=== PATIENT | male | born 1940 | race Caucasian/White ===

== ENCOUNTER 2022-07-27 09:46 | Outpatient (CLI) | payer MEDICARE, SELFPAY ==
[2022-07-27 10:48] LABS: Anion Gap 4 mmol/L (8-16); Blood Urea Nitrogen 16 mg/dL (9-20); Calcium 9.1 mg/dL (8.4-10.2); Carbon Dioxide 33 mmol/L (22-30); Chloride 102 mmol/L (98-107); Estimated Glomerular Filt Rate > 60; Glucose 98 mg/dL (65-110); Potassium 3.9 mmol/L (3.4-5.0); Sodium 139 mmol/L (137-145)
== END 2022-07-27 09:47 | disposition home or self-care (01) ==
LOC: ANHSURGERY 09:52
PROVIDERS: Anesthesiology; PCP Pediatrics; Visit Provider Plastic Surgery
DX: I10 Essential (primary) hypertension (principal); Z01.818 Encounter for other preprocedural examination
CPT/HCPCS: 36415; 80048

== ENCOUNTER 2022-07-28 00:34 | Day surgery (SDC) | payer MEDICARE, SELFPAY ==
--- NOTE | 2022-07-26 13:29 | PC.NURSE ---
Report to the Outpatient Waiting Room, entrance under the green pavilion located off [facility], at time _0630 on date _07/28/22 . Planned Procedure Time: _0830 . Time changes happen often and if your time is changed the preop area will call you the afternoon before. - You and your visitor will be asked to self-screen and do not enter if you have any COVID symptoms. - Only one visitor is requested with a max of two and NO children visitors are allowed at this time. - The patient visitor may be requested to leave or wait in car when not with patient due to distancing restrictions. - A mask is optional within the hospital. Patients may have clear liquids (water, carbonated beverages, clear teas, apple juice) until 3 hours prior to surgery with a maximum of 20 ounces. - No food from midnight until time of surgery - Infants may have breast milk until 4 hours before surgery, infant formula 6 hours prior to surgery. - Children will be allowed to drink immediately following surgery. If applicable, please bring a bottle or sippy cup to assist with drinking. Juice, water, soda, and popsicles are readily available. For infants on formula, please bring formula the day of surgery. Pacifiers are allowed. Take the following medications with a SIP of water the morning of surgery: __AMLODIPINE AND CARVEDILOL Medications to discontinue per physician ____ALL VITAMINS AND SUPPLEMENT 3 DAYS PRE OP PATIENT STATES LAST DOSE07/26/22 MAY CONTINUE ASPIRIN AND ELIQUIS PER DR ELLER JUST DON'T TAKE MORNING OF SURGERY Please no make-up, nail icelandic, hairspray, perfume, deodorant, or body powder the day of surgery. No jewelry (including any body piercings) or valuables the day of surgery, leave them at home. Please take a shower or bath the night before, or the morning of, surgery with an antibacterial soap. Wear comfortable, loose fitting clothing. Children are encouraged to wear pajamas. - Jewelry must be removed prior to entering the operating room. Rings and piercings that are not removed may be cut off. - The hospital will not accept responsibility for valuables. - Please leave all valuables, including medications, at home the day of surgery. If you are going home after surgery, a licensed day haul or farm charter bus driver must drive you home. - NO public transportation without another adult if you receive anesthesia. - We recommend that an adult stay with you for 24 hours following discharge. - We also recommend that you do not drive, make important decision, drink alcoholic beverages, or take any drugs that were not prescribed by your health care provider for at least 24 hours after your discharge time. Follow any additional instructions given to you from your surgeon. If you or anyone in your household have experienced Covid symptoms in the past week, please notify your surgeon or the nurse liaison at the phone number below for possible testing. Telephone instructions given to __PATIENT and asked if any additional questions and then verbalized understanding. Patient advised to call surgeon office or pre surgery nurse liaison [phone] if any additional questions.
[2022-07-26 13:42] VITALS: BMI 34.2
[2022-07-28 06:13] VITALS: BP 130/67; PULSE 56; RESP 18; TEMP 36.3; O2SAT 97
[2022-07-28] MEDS: LACTATED RINGERS 1,000 ML 30 ML IV CONT ×2 (06:34→08:49)
--- NOTE | 2022-07-28 07:01 | WPDANESEPPF ---
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 Patient Data Age: 82 Gender: M Height: 1.75 m Weight: 105.25 kg Allergies Allergy/AdvReac Type Severity Reaction Status Date / Time No Known Allergies Allergy Verified 07/26/22 13:08 Home Medications Medication Instructions Recorded Confirmed Type allopurinol 100 mg tablet 100 mg PO BID 07/26/22 07/28/22 History amlodipine 5 mg tablet 5 mg PO BID 07/26/22 07/28/22 History apixaban 5 mg tablet (Eliquis) 5 mg PO BID 07/26/22 07/28/22 History aspirin 81 mg tablet,delayed 81 mg PO DAILY 07/26/22 07/28/22 History release (Adult Low Dose Aspirin) atorvastatin 40 mg tablet 40 mg PO HS 07/26/22 07/28/22 History carvedilol 25 mg tablet 25 mg PO BID 07/26/22 07/28/22 History cholecalciferol (vitamin D3) 50 50 mcg PO DAILY 07/26/22 07/28/22 History mcg (2,000 unit) tablet hydrochlorothiazide 25 mg tablet 25 mg PO DAILY 07/26/22 07/28/22 History lisinopril 5 mg tablet 5 mg PO DAILY 07/26/22 07/28/22 History loratadine 10 mg tablet 10 mg PO DAILY 07/26/22 07/28/22 History montelukast 10 mg tablet 10 mg PO DAILY 07/26/22 07/28/22 History nitroglycerin 0.4 mg sublingual 0.4 mg sublingual Q5-15M PRN Chest 07/26/22 07/28/22 History tablet Pain omeprazole 20 mg capsule,delayed 20 mg PO PRN PRN Heartburn 07/26/22 07/28/22 History release potassium chloride 20 mEq 20 meq PO DAILY 07/26/22 07/28/22 History tablet,extended release zinc 50 mg tablet 50 mg PO DAILY 07/26/22 07/28/22 History Patient hx anesthesia problems: none Family hx anesthesia problems: none Results Review: All pre-operative results and documents have been reviewed as part of the pre-operative evaluation. [facility] Social History Social History Smoking packs per day: 2 Smoking cigarettes per day: 40.0 Years smoked: 20 Smoking pack-years: 40.00 Smoking status: Former smoker Tobacco type: cigarettes Smoking end date: 07/18/79 Alcohol intake: former Living arrangements: with family Spiritual care concerns: No Anes - Eval Final PreProcedure Day of Procedure 07/28/22 07:01 Patient weight: obese Heart: regular rate and rhythm Lungs: clear to auscultation Airway: Mallampati scale class II Neurological: alert and oriented Last oral intake: >/= 8 hours ASA classification: IV Emergent: no Anesthetic plan: proceed Anesthesia type and monitoring: general GIVS and standard monitoring Results Review: All pre-operative results and documents have been reviewed as part of the pre-operative evaluation. Informed Consent: The patient's anesthetic plan and its attendant risks and benefits were discussed with the patient/family/POA. Questions were solicited and answers provided to the satisfaction of the patient/family/POA.
--- NOTE | 2022-07-28 07:03 | WPDHPUPDATE1 ---
History and Physical Update Update Date/Time: 07/28/22 07:03 History and Physical has been reviewed, including an updated exam of the patient. There are NO changes in the patient's condition. Risks, benefits, and alternatives have been discussed and questions answered. Patient agrees to proceed with procedure.
--- NOTE | 2022-07-28 07:56 | SUR.OPER ---
Frozen section specimen sent with MADI Harris and received in pathology by Justin
[2022-07-28 08:49] VITALS: BP 114/65; PULSE 60; RESP 18; O2SAT 95
[2022-07-28] MEDS: oxyCODONE HCL (*CRX) 5 MG TAB IR PO (09:10)
[2022-07-28 09:15] VITALS: BP 139/78; PULSE 61; RESP 18; O2SAT 95
--- NOTE | 2022-07-28 09:15 | P.OP_ITS ---
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 Description of Procedure The site on the patient's medial marked holding area. The part of it had fallen off yesterday and blood profusely and remained ulcerated.. He was taken to the operating where he was placed supine on the operating table. He was given IV sedation. The right foot and ankle were prepped and draped in usual fashion along with the right thigh for donor site.. The marking was placed for excision and the area infiltrated with 1% lidocaine with epinephrine.. We went ahead and marked the site on the right thigh as well and infiltrated with 1% lidocaine with epinephrine there. The excision was carried out around the mass that well into the subcutaneous tissue clearing the mass it appeared. The specimen was sent to pathology with a suture for 12:00 p.m. the superior aspect. The pathologist reports that there is no skin cancer. He did not suggest a differential diagnosis. I suggested possible pyogenic granuloma. Final diagnosis deferred to permanent sections. The graft was taken from the thigh, defatted and inset with 5 0 nylon suture including quilting stitches. Was carefully trimmed. The donor site was closed with intradermal 3-0 Vicryl sutures after removing the dermis. The skin was then closed with glue on the thigh. A bulky bandage with Mepilex Ag Advantage was applied under a 2 in Coban wrap. Estimated Blood Loss 2 Tourniquet Time 0 Drains No Packing No Pathology Yes Complications No immediate complications Condition Stable Disposition Same day
[2022-07-28 09:45] VITALS: BP 118/75; PULSE 62; RESP 18
== END 2022-07-28 10:13 | disposition home or self-care (01) ==
PROVIDERS: PCP Pediatrics; Visit Provider Plastic Surgery
PROC: (CPT 11402; principal; 2022-07-28 08:30)
DX: D18.01 Hemangioma of skin and subcutaneous tissue (principal); Z79.01 Long term (current) use of anticoagulants; Z79.82 Long term (current) use of aspirin; Z87.891 Personal history of nicotine dependence; E66.9 Obesity, unspecified; Z68.35 Body mass index [BMI] 35.0-35.9, adult
CPT/HCPCS: 11402; 15220; 88305; 88331; A9270; J2704; J3010; J7120

== ENCOUNTER 2022-09-24 10:00 | Outpatient (RCR) | payer MEDICARE, SELFPAY ==
[2022-08-24 09:30] VITALS: BMI 34.3
== END 2022-11-08 08:28 | disposition home or self-care (01) ==
LOC: ANHWOC 10:00
PROVIDERS: PCP Pediatrics; Visit Provider Plastic Surgery
DX: S91.001D Unspecified open wound, right ankle, subsequent encounter (principal)
CPT/HCPCS: 99212; 99213; 99214; A9270; G0463

== ENCOUNTER 2024-11-20 11:06 | Outpatient (CLI) | payer MEDICARE, SELFPAY ==
--- NOTE | ~2024-11-20 | XR_ITS ---
Left Shoulder Technique: AP and axillary views were obtained. Clinical History: Pain Findings: No fracture or dislocation is seen. Osseous alignment is anatomic. The glenohumeral joint i s intact. There is minimal AC joint degenerative change. Soft tissues are unremarkable. Impression: Minimal AC joint degenerative change. Reviewed, dictated and finalized at location . Impression: Minimal AC joint degenerative change.
== END 2024-11-20 11:07 | disposition home or self-care (01) ==
PROVIDERS: PCP Pediatrics; Visit Provider Nurse Practitioner Family
DX: M25.512 Pain in left shoulder (principal)
CPT/HCPCS: 73030